=== PATIENT | male | born 2000 | race Caucasian/White ===

== ENCOUNTER 2018-12-31 17:18 | Emergency (ER) | payer OTHER ==
[2018-12-31 17:26] VITALS: BP 119/70; PULSE 81; RESP 18; TEMP 98.9
--- NOTE | 2018-12-31 17:42 | ED ---
General Adult HPI - General Chief complaint: ENT Stated complaint: Sore throat Time Seen by Provider: 12/31/18 17:28 Source: patient, RN notes reviewed, old records reviewed Mode of arrival: ambulatory Limitations: no limitations - History of Present Illness Initial comments: 18-year-old male patient with no pertinent past medical history, fully vaccinated presents to ED with 1 day of sore throat. Patient reports that he does notice white exudates in the back of his throat. Patient denies any other complaints. As chest measurements breath abdominal pain nausea vomiting diarrhea. Systemic: Pt denies fatigue, myalgia, fever/chills, rash. Pt denies weakness, night sweats, weight loss. Neuro: Pt denies headache, visual disturbances, syncope or pre-syncope. HEENT: Pt denies ocular discharge or irritation, otalgia, rhinorrhea, pharyngitis or notable lymphadenopathy. Cardiopulmonary: Pt denies chest pain, SOB, heart palpitations, dyspnea on exer tion. Abdominal/GI: Pt denies abdominal pain, n/v/d. : Pt denies dysuria, burning w/ urination, frequency/urgency. Denies new onset urinary or bowel incontinence. MSK: Pt denies myalgia, loss of strength or function in extremities. Neuro: Pt denies new onset weakness, paresthesias. - Related Data Previous Rx's Medication Instructions Recorded Amoxicillin 500 mg PO Q12HR 10 Days day 12/31/18 Allergies Allergy/AdvReac Type Severity Reaction Status Date / Time No Known Allergies Allergy Verified 12/31/18 17:26 Review of Systems ROS Statement: Those systems with pertinent positive or pertinent negative responses have been documented in the HPI. ROS Other: All systems not noted in ROS Statement are negative. Past Medical History Past Medical History: No Reported History History of Any Multi-Drug Resistant Organisms: None Reported Past Surgical History: No Surgical Hx Reported Past Psychological History: No Psychological Hx Reported Smoking Status: Current every day smoker Past Alcohol Use History: None Reported Past Drug Use History: None Reported General Exam - General Exam Comments Initial Comments: Constitutional: NAD, AOX3, Pt has pleasant affect. HEENT: NC/AT, trachea midline, neck supple, no lymphadenopathy. Posterior pharynx mildly erythematous, +2 tonsils with scattered exudates.. External ears appear normal, without discharge. Mucous membranes moist. Eyes PERRLA, EOM intact. There is no scleral icterus. No pallor noted. Cardiopulmonary: RRR, no murmurs, rubs or gallops, no JVD noted. Lungs CTAB in anterior and posterior petty. No peripheral edema. Abdominal exam: Abdomen soft and non-distended. Abdomen non-tender to palpation in all 4 quadrants. Bowel sounds active in LLQ. No hepatosplenomegaly. No ecchymosis Neuro: CN II-XII grossly intact. No nuchal rigidity. MSK: No posterior calf tenderness bilaterally, homans sign negative bilaterally. Posterior tibialis and radial pulse +2 bilaterally. Sensation intact in upper and lower extremities. Full active ROM in upper and lower extremities, 5/5 stregnth. Limitations: no limitations Course Vital Signs 12/31/18 17:23 Temperature 98.9 F Pulse Rate 81 Respiratory 18 Rate Blood Pressure 119/70 O2 Sat by Pulse 100 Oximetry Medical Decision Making - Medical Decision Making 18-year-old male patient with no pertinent past medical history, fully vaccinated presents to ED with 1 day of sore throat. Patient reports that he does notice white exudates in the back of his throat. Patient denies any other complaints. As chest measurements breath abdominal pain nausea vomiting diarrhea. Pt VSS, afebrile. Physical exam displayed: Posterior pharynx mildly erythematous, +2 tonsils with scattered exudates. Patient will be empirically treated for group A strep. Patient to follow up with primary care provider in 2 days. Patient return to ER if condition worsens. Case discussed with Dr. Shahid. Disposition Clinical Impression: Pharyngitis, Tonsillitis Disposition: HOME SELF-CARE Condition: Stable Instructions (If sedation given, give patient instructions): Strep Throat (ED), Tonsillitis (ED), Pharyngitis (ED) Additional Instructions: Patient to adhere to previously discussed treatment plan and will take medi cation(s) as directed. Patient to follow up with PCP in 1-2 days. Patient to return to ED if symptoms do not improve. Take medications directed. Return to ER if condition worsens. Prescriptions: Amoxicillin 500 mg PO Q12HR 10 Days day Is patient prescribed a controlled substance at d/c from ED?: No Referrals: None,Stated [Primary Care Provider] - 1-2 days [facility] [NON-STAFF] - 1-2 days
== END 2018-12-31 18:11 | disposition home or self-care (01) ==
LOC: EC 17:18
DX: J02.9 Acute pharyngitis, unspecified (principal); F17.200 Nicotine dependence, unspecified, uncomplicated
CPT/HCPCS: 99283